=== PATIENT | female | born 1985 | race Native Hawaiian/Other Pacific Islander ===

== ENCOUNTER 2019-07-20 10:00 | Outpatient (CLI) | payer OTHER ==
[2019-07-20 10:39] LABS: PLATELET COUNT 89 K/uL (152-353)
[2019-07-20 11:16] LABS: POTASSIUM 3.4 mmol/L (3.6-5.2)
== END 2019-07-20 19:16 | disposition home or self-care (01) ==
LOC: LABW 10:00
PROVIDERS: Nurse Practitioner
DX: D64.9 Anemia, unspecified (principal); E55.9 Vitamin D deficiency, unspecified; R53.83 Other fatigue; E53.8 Deficiency of other specified B group vitamins
CPT/HCPCS: 36415; 80053; 82306; 82607; 82746; 83540; 83550; 84443; 85027

== ENCOUNTER 2020-09-28 12:06 | Emergency (ER) | payer OTHER ==
[~2020-09-28] VITALS: Ht 147.3 cm; Wt 40.4 kg
[2020-09-28 12:08] VITALS: BP 106/68; TEMP 98
== END 2020-09-28 13:03 | disposition home or self-care (01) ==
LOC: ED 12:06
DX: N75.0 Cyst of Bartholin's gland (principal)
CPT/HCPCS: 81000; 81025; 96372; 99283; J0696; J1885